=== PATIENT | male | born 1945 | race Caucasian/White ===

== ENCOUNTER 2019-06-10 07:51 | Outpatient (RCR) | payer MEDICARE, SELFPAY ==
--- NOTE | 2019-06-18 14:10 | PCWOUND ---
Appointment cancelled for today. Patient was seen by Dr. Padilla who resumed care of leg and will follow in office.
== END 2019-08-01 12:30 | disposition home or self-care (01) ==
LOC: ANHWOC 07:51
PROVIDERS: Visit Provider Podiatrist Foot & Ankle Surgery
DX: E11.621 Type 2 diabetes mellitus with foot ulcer (principal); L97.529 Non-pressure chronic ulcer of other part of left foot with unspecified severity
CPT/HCPCS: 29445; 29581; 92593; 99212; G0463